=== PATIENT | female | born 1940 | race Caucasian/White ===

== ENCOUNTER → 2020-10-26 12:49 | Outpatient (CLI) | payer OTHER, SELFPAY ==
[2020-10-26] MEDS: COVID-19 VACC, Ad26(JANSSEN)/PF 0.5 ML IM (13:01)
== END ==
PROVIDERS: Visit Provider Internal Medicine
DX: Z23 Encounter for immunization (principal)
CPT/HCPCS: 0031A; 91303

== ENCOUNTER 2025-01-06 14:05 | Observation (INO) | payer MEDICARE, SELFPAY ==
[2025-01-06] VITALS (22 sets, daily range): BP systolic 95–147; BP diastolic 65–85; PULSE 83–93; RESP 13–26; TEMP 36.6–36.8; O2SAT 94–100; BMI 23.1
--- NOTE | 2025-01-06 14:27 | DI.RAD.S_ITS ---
PROCEDURE: XR CHEST 1V INDICATIONS: Chest Pain TECHNIQUE: One view of the chest was acquired. COMPARISON: None. FINDINGS: Surgical changes and devices: None. Lungs and pleura: Patient is rotated towards the left. Bilateral interstitial opacities. No pleural effusions or pneumothorax. Mediastinum: Mediastinal contours are distorted by patient rotation. Bones and chest wall: No suspicious bony lesions. Overlying soft tissues appear unremarkable. IMPRESSION: Bilateral pulmonary opacities may be secondary to pneumonia or edema. Approved by: Kash Alvarado M.D. on 01/06/2025 at 13:50
--- NOTE | 2025-01-06 14:31 | EKG_ITS ---
[address] [address] Test Date: 2025-01-06 Pat Name: Madeleine Saldana Department: [facility] Room: Gender: Female Aqu[employer] Performer: : 1940 Requested By: Order Number: [id number] Reading MD: Sonny Carpenter Measurements Intervals [place] Rate: 90 P: 63 KS: 150 QRS: -4 QRSD: 96 T: 106 QT: 384 QTc: 469 Interpretive Statements Sinus rhythm with occasional premature ventricular complexes Left ventricular hypertrophy with repolarization abnormality ( R in aVL , Kye product ) Electronically Signed On 01-06-2025 15:32:25 PDT by Sonny Carpenter
--- NOTE | 2025-01-06 14:32 | PC.NURSE ---
Pt skin tone is yellow all throughout her body and the sclera of her eyes. Daughter reports this has worsened in the past few weeks. She reports increasing weakness over the past few days, needing help getting up to the bathroom, SOB with ambulation and dizziness upon standing that subsides. Decreased appetite and itchiness on her body, particularly both of her arms. No rash noted. She is still able to tolerate fluids by mouth. GCS 15. No known medical history other than patient reports an allergy to latex.
[2025-01-06 14:40] LABS: Alanine Aminotransferase 93 IU/L (<35); Albumin 3.6 g/dL (3.5-5.0); Albumin Globulin Ratio 0.8 (1.0-2.8); Aspartate Aminotransferase 131 IU/L (14-36); BUN Creatinine Ratio 32.1 (6-22); Blood Urea Nitrogen 25 mg/dL (7-17); Calcium 9.8 mg/dL (8.4-10.2); Carbon Dioxide 22 mmol/L (22-32); Chloride 100 mmol/L (98-107); Creatine Kinase 38 U/L (30-135); Estimated Glomerular Filt Rate > 60 mL/min (>60); Globulin 4.6 g/dL (1.7-4.1); Glucose 102 mg/dL (70-99); Lipase 290 U/L (23-300); Magnesium 2.1 mg/dL (1.6-2.3); Potassium 3.3 mmol/L (3.4-5.1); Sodium 133 mmol/L (137-145)
[2025-01-06 14:41] LABS: INR 1.6 (0.9-1.3); PTT Partial Thromboplastin Tim 33 SECONDS (25.1-36.5); Prothrombin Time 17.6 SECONDS (9.4-12.5)
[2025-01-06 14:47] LABS: Hematocrit 33.5 % (36-46); Hemoglobin 11.2 g/dL (12.0-16.0); Mean Corpuscular HGB Conc 33.5 % (30-36); Mean Corpuscular Hemoglobin 28.7 PG (26-34); Mean Corpuscular Volume 85.6 fL (80-100); Platelet Count 202 X10^3/uL (150-400); Red Blood Cell Count 3.91 X10^6/uL (4.0-5.2); Red Cell Distribution Width 31.6 % (11.6-14.8); White Blood Cell Count 11.3 X10^3/uL (4.5-11.0)
[2025-01-06 14:51] LABS: NT-proBNP (BNP-Adult 18+) 340 pg/mL (<450); Troponin I 0.044 ng/mL (0.01-0.034)
[2025-01-06 15:09] LABS: Alkaline Phosphatase 822 U/L (38-126)
[2025-01-06 15:10] LABS: Total Protein 8.2 g/dL (6.3-8.2)
[2025-01-06 15:13] LABS: Add Manual Diff / Slide Review YES
[2025-01-06 15:31] LABS: Neutrophils Absolute Manual 9379 /uL (3000-5900); Total Cells Counted 100
[2025-01-06 15:32] LABS: Microcytosis 1+; Target Cells 2+
[2025-01-06 15:33] LABS: Anisocytosis 2+
--- NOTE | 2025-01-06 15:50 | PC.NURSE ---
Provider Luis speaks with patient. At this time, per provider, will hold doxycycline until results of CT.
--- NOTE | 2025-01-06 15:53 | ED.GENADULT ---
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 No injury or trauma. No history of exposure to known hepatitis. No [id number] prescription medications. Denies fevers or chills. Has itching of the skin after yellow in color that is becoming more intense last few days. Related Data Previous Rx's Medication Instructions Recorded diphenhydramine HCl 25 mg capsule 50 mg (2 x 25 mg) PO QID #40 caps 01/06/25 (Benadryl) ondansetron 4 mg disintegrating 4 mg PO Q6H PRN nausea and 01/06/25 tablet vomiting #20 tabs oxycodone 5 mg tablet 5 mg PO Q6H PRN pain #20 tabs 01/06/25 Allergies Allergy/AdvReac Type Severity Reaction Status Date / Time amoxicillin Allergy Intermediate Rash Verified 01/06/25 15:49 latex AdvReac Intermediate ITCHING Verified 01/06/25 14:47 Patient History <Meliton Smith MD - Last Filed: 01/07/25 10:07> Social History household members: none Smoking Status: Never smoker alcohol intake: never Exam <Meliton Smith MD - Last Filed: 01/07/25 10:07> Narrative Exam Narrative: GENERAL: Well-developed patient, in mild distress. HEAD: Atraumatic. Normocephalic. EYES: Pupils equal round and reactive. Extraocular motions intact. Dark scleral icterus. No injection or drainage. ENT: Nose without bleeding, purulent drainage. Throat without erythema, tonsillar hypertrophy or exudate. Airway patent. NECK: Trachea midline. Non tender CARDIOVASCULAR: Regular rate and rhythm without murmurs, gallops, or rubs. RESPIRATORY: Clear to auscultation. Breath sounds equal bilaterally. No wheezes, rales, or rhonchi. GASTROINTESTINAL: Abdomen soft, non-tender, nondistended. EXTREMITIES: No edema or joint tenderness. BACK: Nontender without deformity or crepitance. No flank tenderness. NEURO: AOx3. Motor functions grossly nonfocal. SKIN: Bronze yellow color diffuse, central as well as peripheral. No rash or erythema of visible areas Initial Vital Signs Initial Vital Signs: Vital Signs Pulse Rate 93 H 01/06/25 14:10 Respiratory Rate 16 01/06/25 14:10 Blood Pressure 132/78 01/06/25 14:10 Pulse Oximetry 98 01/06/25 14:10 <Fuad Nielsen DO - Last Filed: 01/07/25 00:34> Initial Vital Signs Initial Vital Signs: Vital Signs Pulse Rate 93 H 01/06/25 14:10 Respiratory Rate 16 01/06/25 14:10 Blood Pressure 132/78 01/06/25 14:10 Pulse Oximetry 98 01/06/25 14:10 Course <Meliton Smith MD - Last Filed: 01/07/25 10:07> Orders Ordered: Diphenhydramine HCl (Diphenhydramine 25 Mg Tablet) 50 mg PO Q6HR PRN PRN Reason: Itching Last Admin: 01/07/25 09:49 Dose: 50 mg Documented By: BARBARA Hydromorphone HCl (Hydromorphone 2 Mg Tablet) 4 mg PO Q4HR PRN PRN Reason: Pain, Severe (7-10) Last Admin: 01/06/25 23:40 Dose: 4 mg Documented By: Hydromorphone HCl (Hydromorphone 0.5 Mg Inj) 0.5 mg IV Q2H PRN PRN Reason: Pain, Severe (7-10) Ibuprofen (Ibuprofen 600 Mg Tablet) 600 mg PO Q6H PRN PRN Reason: Fever/Mild Pain (1-3) Naloxone HCl (Naloxone 0.4 Mg/Ml Vial) 0.2 mg IV Q2MIN PRN PRN Reason: Opiate Reversal Ondansetron HCl (Ondansetron 4 Mg Odt) 4 mg PO Q4HR PRN PRN Reason: nausea Oxycodone HCl (Oxycodone Ir 5 Mg Tablet) 5 mg PO Q3H PRN PRN Reason: Pain, Moderate (4-6) Sodium Chloride (Sodium Chloride 0.9% Flush) 10 ml IV PRN PRN PRN Reason: Flush Last Admin: 01/07/25 00:56 Dose: 10 ml Documented By: Sodium Chloride (Sodium Chloride 0.9% Flush) 10 ml IV BID RANDALL Last Admin: 01/07/25 09:50 Dose: 10 ml Documented By: FRANCISCOW Discontinued Medications Diphenhydramine HCl (Diphenhydramine 50 Mg/Ml Vial) 25 mg IV NOW ONE Stop: 01/06/25 15:55 Last Admin: 01/06/25 16:01 Dose: 25 mg Documented By: ISAIAS Diphenhydramine HCl (Diphenhydramine 25 Mg Tablet) 50 mg PO NOW ONE Stop: 01/06/25 18:38 Last Admin: 01/06/25 19:05 Dose: 50 mg Documented By: ISAIAS Diphenhydramine HCl (Diphenhydramine 50 Mg/Ml Vial) 25 mg IV NOW ONE Stop: 01/07/25 00:12 Last Admin: 01/07/25 00:56 Dose: 25 mg Documented By: Doxycycline Hyclate (Doxycycline Hyclate 100 Mg Tablet) 100 mg PO NOW ONE Stop: 01/06/25 15:35 Last Admin: 01/06/25 17:58 Dose: Not Given Documented By: ISAIAS Morphine Sulfate (Morphine 4 Mg/Ml Inj) 4 mg IV NOW ONE Stop: 01/06/25 15:55 Last Admin: 01/06/25 16:01 Dose: 4 mg Documented By: ISAIAS Ondansetron HCl (Ondansetron 4 Mg/2 Ml Inj) 4 mg IV NOW ONE Stop: 01/06/25 15:55 Last Admin: 01/06/25 16:00 Dose: 4 mg Documented By: ISAIAS Ondansetron HCl (Ondansetron 4 Mg Odt Prepack) 1 bottle MISC DIRECTED ONE Stop: 01/06/25 18:20 Last Admin: 01/06/25 19:05 Dose: 1 bottle Documented By: ISAIAS Oxycodone HCl (Oxycodone Ir 5 Mg Tablet) 5 mg PO NOW ONE Stop: 01/06/25 18:37 Last Admin: 01/06/25 19:04 Dose: 5 mg Documented By: ISAIAS Potassium Chloride (Potassium Chloride 20 Meq/15 Ml Udc) 20 meq PO NOW ONE Stop: 01/06/25 15:33 Last Admin: 01/06/25 16:00 Dose: 20 meq Documented By: ISAIAS Tramadol HCl (Tramadol 50 Mg Prepack) 1 bottle MISC DIRECTED ONE Stop: 01/06/25 18:20 Last Admin: 01/06/25 19:05 Dose: 1 bottle Documented By: ISAIAS Vital Signs Vital signs: Vital Signs - 8 hr 01/06/25 17:30 01/06/25 17:30 01/06/25 18:00 Pulse Rate 91 H 89 Respiratory Rate 19 24 Blood Pressure 120/74 Pulse Oximetry 95 94 Oxygen Delivery Method Room Air 01/06/25 18:00 01/06/25 18:30 01/06/25 18:30 Pulse Rate 90 Respiratory Rate Blood Pressure 100/66 103/70 Pulse Oximetry 96 Oxygen Delivery Method 01/06/25 19:00 01/06/25 19:00 01/06/25 19:03 Pulse Rate 88 Respiratory Rate Blood Pressure 95/67 97/68 Pulse Oximetry 96 Oxygen Delivery Method 01/06/25 19:03 01/06/25 19:18 01/06/25 19:18 Pulse Rate 89 93 H Respiratory Rate 20 Blood Pressure 107/75 Pulse Oximetry 95 Oxygen Delivery Method Room Air 01/06/25 19:30 01/06/25 19:30 01/06/25 20:00 Pulse Rate 90 85 Respiratory Rate 25 H 24 Blood Pressure 107/73 Pulse Oximetry 97 98 Oxygen Delivery Method 01/06/25 20:01 01/06/25 20:01 01/06/25 20:30 Pulse Rate 85 87 Respiratory Rate 26 H 24 Blood Pressure 146/80 H Pulse Oximetry 97 96 Oxygen Delivery Method 01/06/25 20:30 01/06/25 21:00 01/06/25 21:00 Pulse Rate 87 Respiratory Rate 21 Blood Pressure 110/69 116/74 Pulse Oximetry 97 Oxygen Delivery Method <Fuad Nielsen, DO - Last Filed: 01/07/25 00:34> Orders Ordered: Diphenhydramine HCl (Diphenhydramine 25 Mg Tablet) 50 mg PO Q6HR PRN PRN Reason: Itching Last Admin: 01/07/25 09:49 Dose: 50 mg Documented By: FRANCISCOW Hydromorphone HCl (Hydromorphone 2 Mg Tablet) 4 mg PO Q4HR PRN PRN Reason: Pain, Severe (7-10) Last Admin: 01/06/25 23:40 Dose: 4 mg Documented By: Hydromorphone HCl (Hydromorphone 0.5 Mg Inj) 0.5 mg IV Q2H PRN PRN Reason: Pain, Severe (7-10) Ibuprofen (Ibuprofen 600 Mg Tablet) 600 mg PO Q6H PRN PRN Reason: Fever/Mild Pain (1-3) Naloxone HCl (Naloxone 0.4 Mg/Ml Vial) 0.2 mg IV Q2MIN PRN PRN Reason: Opiate Reversal Ondansetron HCl (Ondansetron 4 Mg Odt) 4 mg PO Q4HR PRN PRN Reason: nausea Oxycodone HCl (Oxycodone Ir 5 Mg Tablet) 5 mg PO Q3H PRN PRN Reason: Pain, Moderate (4-6) Sodium Chloride (Sodium Chloride 0.9% Flush) 10 ml IV PRN PRN PRN Reason: Flush Last Admin: 01/07/25 00:56 Dose: 10 ml Documented By: Sodium Chloride (Sodium Chloride 0.9% Flush) 10 ml IV BID RANDALL Last Admin: 01/07/25 09:50 Dose: 10 ml Documented By: BARBARA Discontinued Medications Diphenhydramine HCl (Diphenhydramine 50 Mg/Ml Vial) 25 mg IV NOW ONE Stop: 01/06/25 15:55 Last Admin: 01/06/25 16:01 Dose: 25 mg Documented By: ISAIAS Diphenhydramine HCl (Diphenhydramine 25 Mg Tablet) 50 mg PO NOW ONE Stop: 01/06/25 18:38 Last Admin: 01/06/25 19:05 Dose: 50 mg Documented By: ISAIAS Diphenhydramine HCl (Diphenhydramine 50 Mg/Ml Vial) 25 mg IV NOW ONE Stop: 01/07/25 00:12 Last Admin: 01/07/25 00:56 Dose: 25 mg Documented By: Doxycycline Hyclate (Doxycycline Hyclate 100 Mg Tablet) 100 mg PO NOW ONE Stop: 01/06/25 15:35 Last Admin: 01/06/25 17:58 Dose: Not Given Documented By: ISAIAS Morphine Sulfate (Morphine 4 Mg/Ml Inj) 4 mg IV NOW ONE Stop: 01/06/25 15:55 Last Admin: 01/06/25 16:01 Dose: 4 mg Documented By: ISAIAS Ondansetron HCl (Ondansetron 4 Mg/2 Ml Inj) 4 mg IV NOW ONE Stop: 01/06/25 15:55 Last Admin: 01/06/25 16:00 Dose: 4 mg Documented By: ISAIAS Ondansetron HCl (Ondansetron 4 Mg Odt Prepack) 1 bottle MISC DIRECTED ONE Stop: 01/06/25 18:20 Last Admin: 01/06/25 19:05 Dose: 1 bottle Documented By: ISAIAS Oxycodone HCl (Oxycodone Ir 5 Mg Tablet) 5 mg PO NOW ONE Stop: 01/06/25 18:37 Last Admin: 01/06/25 19:04 Dose: 5 mg Documented By: ISAIAS Potassium Chloride (Potassium Chloride 20 Meq/15 Ml Udc) 20 meq PO NOW ONE Stop: 01/06/25 15:33 Last Admin: 01/06/25 16:00 Dose: 20 meq Documented By: ISAIAS Tramadol HCl (Tramadol 50 Mg Prepack) 1 bottle MISC DIRECTED ONE Stop: 01/06/25 18:20 Last Admin: 01/06/25 19:05 Dose: 1 bottle Documented By: ISAIAS Vital Signs Vital signs: Vital Signs - 8 hr 01/06/25 17:30 01/06/25 17:30 01/06/25 18:00 Pulse Rate 91 H 89 Respiratory Rate 19 24 Blood Pressure 120/74 Pulse Oximetry 95 94 Oxygen Delivery Method Room Air 01/06/25 18:00 01/06/25 18:30 01/06/25 18:30 Pulse Rate 90 Respiratory Rate Blood Pressure 100/66 103/70 Pulse Oximetry 96 Oxygen Delivery Method 01/06/25 19:00 01/06/25 19:00 01/06/25 19:03 Pulse Rate 88 Respiratory Rate Blood Pressure 95/67 97/68 Pulse Oximetry 96 Oxygen Delivery Method 01/06/25 19:03 01/06/25 19:18 01/06/25 19:18 Pulse Rate 89 93 H Respiratory Rate 20 Blood Pressure 107/75 Pulse Oximetry 95 Oxygen Delivery Method Room Air 01/06/25 19:30 01/06/25 19:30 01/06/25 20:00 Pulse Rate 90 85 Respiratory Rate 25 H 24 Blood Pressure 107/73 Pulse Oximetry 97 98 Oxygen Delivery Method 01/06/25 20:01 01/06/25 20:01 01/06/25 20:30 Pulse Rate 85 87 Respiratory Rate 26 H 24 Blood Pressure 146/80 H Pulse Oximetry 97 96 Oxygen Delivery Method 01/06/25 20:30 01/06/25 21:00 01/06/25 21:00 Pulse Rate 87 Respiratory Rate 21 Blood Pressure 110/69 116/74 Pulse Oximetry 97 Oxygen Delivery Method Medical Decision Making <Meliton Smith MD - Last Filed: 01/07/25 10:07> Lab Data Lab results reviewed: Yes I reviewed the patient's lab results. Lab results narrative: White blood cell count 41971, hemoglobin 11.2, platelets 202,000. Glucose 102. Renal function unremarkable. Potassium 3.3 low. Sodium 133 low. Total bilirubin 37, direct bilirubin 34. Mild transaminitis. Alkaline phosphatase 822. Lipase 290. 01/06/25 14:19 01/06/25 14:19 Labs: Lab Results 01/06/25 Range/Units 14:19 WBC 11.3 H (4.5-11.0) X10^3/uL RBC 3.91 L (4.0-5.2) X10^6/uL Hgb 11.2 L (12.0-16.0) g/dL Hct 33.5 L (36-46) % MCV 85.6 (80-100) fL MCH 28.7 (26-34) PG MCHC 33.5 (30-36) % RDW 31.6 H (11.6-14.8) % Plt Count 202 (150-400) X10^3/uL Neut % (Auto) Not Reportable Lymph % (Auto) Not Reportable [place] % (Auto) Not Reportable Eos % (Auto) Not Reportable Baso % (Auto) Not Reportable Lymph # (Auto) Not Reportable [place] # (Auto) Not Reportable Baso # (Auto) Not Reportable Total Counted 100 Seg Neutrophils % 83.0 H (38-70) % Lymphocytes % (Manual) 9.0 L (25-45) % Monocytes % (Manual) 7.0 (2-11) % Eosinophils % (Manual) 1.0 L (2-4) % Neutrophils # (Manual) 9379 H (8205-5415) /uL RBC Morphology See below Anisocytosis 2+ H Microcytosis 1+ H Target Cells 2+ H PT 17.6 H (9.4-12.5) SECONDS INR 1.6 H (0.9-1.3) APTT 33 (25.1-36.5) SECONDS Sodium 133 L (137-145) mmol/L Potassium 3.3 L (3.4-5.1) mmol/L Chloride 100 (98-107) mmol/L Carbon Dioxide 22 (22-32) mmol/L BUN 25 H (7-17) mg/dL Creatinine 0.78 (0.52-1.04) mg/dL Estimated GFR > 60 (>60) mL/min BUN/Creatinine Ratio 32.1 H (6-22) Glucose 102 H (70-99) mg/dL Calcium 9.8 (8.4-10.2) mg/dL Magnesium 2.1 (1.6-2.3) mg/dL Total Bilirubin 37.0 H (0.2-1.3) mg/dL Direct Bilirubin 34.2 H (0.0-0.4) mg/dL AST 131 H (14-36) IU/L ALT 93 H (<35) IU/L Alkaline Phosphatase 822 H (38-126) U/L Total Creatine Kinase 38 (30-135) U/L Troponin I 0.044 H (0.01-0.034) ng/mL NT-Pro-B Natriuret Pep 340 (<450) pg/mL Total Protein 8.2 (6.3-8.2) g/dL Albumin 3.6 (3.5-5.0) g/dL Globulin 4.6 H (1.7-4.1) g/dL Albumin/Globulin Ratio 0.8 L (1.0-2.8) Lipase 290 (23-300) U/L Imaging Data CT chest abdomen pelvis: Radiologist's Impression: [address] [address] [address] Scan Report Signed Patient: Madeleine Saldana MR#: [id number] : 1940 Acct:[id number] Age/Sex: 84 / F Date of Service: 01/06/25 Loc: ED Accession Number: [id number] Procedure: CT chest abd pel w con Ordering Provider: Meliton Smith MD PROCEDURE: CT CHEST ABD PEL W CON INDICATIONS: painless jaunidce, and ?infilt on CXR TECHNIQUE: After the administration of intravenous contrast, 5 mm thick sections acquired from the lung apices to the symphysis. 5 mm coronal and sagittal reformats were performed, with additional 7 mm MIP reformats through the lungs. For radiation dose reduction, the following was used: automated exposure control, adjustment of mA and/or kV according to patient size. COMPARISON: Merged With [facility], CR, XR CHEST 1V, 01/06/2025, 14:25. FINDINGS: Image quality: Excellent. CHEST: Lower Neck: No enlarged lymph nodes. Thyroid: No thyroid nodules which require sonographic follow up, per consensus guidelines. Axillae: No enlarged lymph nodes. Chest Wall: Unremarkable. Lungs and Pleura: Numerous bilateral pulmonary nodules and peripheral opacities. The largest is located in the anterior left upper lobe measuring approximately 3.4 x 2.9 cm (5/136) No pneumothorax or pleural effusions. Heart: Heart size is normal. No pericardial effusion. Thoracic Vessels: The aorta and pulmonary arteries demonstrate normal size. Mediastinum and Bella: A right hilar lymph node measures 1.1 cm in short axis diameter (2/40). Esophagus: No wall thickening. No hiatal hernia. ABDOMEN: Liver: Multiple hypoattenuating liver masses, the largest in the left hepatic lobe measuring approximately the 4.3 x 3.5 cm (2/76). Gallbladder: Gallbladder is contracted and not well evaluated. Biliary ducts: Diffuse intrahepatic biliary duct dilatation. Extrahepatic bile ducts are poorly visualized. Pancreas: Ill-defined mass in the body of the pancreas estimated at 3.8 x 3.6 cm (2/96), by 4.8 cm in craniocaudal dimension (3/49). There is dilation of the main pancreatic duct within the tail with associated pancreatic atrophy. The mass encases and narrows the splenic artery and abuts the superior mesenteric artery. Of note, the common hepatic artery arises from the superior mesenteric artery. The mass also abuts the superior mesenteric vein and portal vein near the portal splenic confluence. There is encasement and narrowing of the splenic vein. Spleen: Size is within normal limits. Adrenal Glands: Left adrenal nodule measures 2.9 x 1.9 cm (2/96) no right adrenal nodule. Kidneys and Ureters: No hydronephrosis. No solid mass. No complex renal cystic lesion which requires follow up. Stomach and Bowel: Large hiatal hernia. Normal colonic caliber, without significant wall thickening. Peritoneum: No abnormal intraperitoneal fluid. No free air. Ventral Wall: No significant ventral hernia. Abdominal Nodes: A periportal lymph node measures 7 cm in short axis diameter. A few additional prominent upper abdominal lymph nodes are present. Left retroperitoneal lymph node measures 1.5 cm in short axis at the level of the left renal vein. Vessels: 8 or is normal in size. Variant anatomy of the inferior vena cava , with prominent left-sided venous structure below the level of the renal veins. PELVIS: Pelvic Organs: Prominent pelvic floor descent with prolapse of the uterus at the margins of the field of view of this exam. Bladder: Asymmetric irregular left bladder wall thickening. A calculus in the bladder measures 1.6 cm in maximum dimension. Pelvic Nodes: No enlarged lymph nodes. Miscellaneous: No inguinal hernias are seen. Bones: Multifocal degenerative changes. Moderate to severe T6 vertebral body compression fracture. No definite additional osseous lesions identified. IMPRESSION: 1. Ill-defined hypoattenuating mass in the pancreatic body is highly suspicious for pancreas adenocarcinoma. 2. Multiple hypoattenuating liver masses are consistent with hepatic metastatic disease. Intrahepatic biliary duct dilatation to the level of the hepatic hilum. 3. Multiple upper abdominal and retroperitoneal lymph nodes are suspicious for berto metal metastases. 4. Left adrenal 2.9 cm nodule is nonspecific, but metastatic disease is not excluded. 5. Numerous pulmonary nodules and peripheral opacities, suspicious for pulmonary metastatic disease. Superimposed primary lung malignancy or infectious or inflammatory process is not excluded given varied appearance of lesions. 6. Irregular left-sided bladder wall thickening is moderately suspicious for urothelial malignancy. Correlation with cystoscopy is suggested. 7. Moderate to severe T6 vertebral body compression fracture. 8. Prominent pelvic floor descent with anderson prolapse of the uterus. Approved by: Kash Alvarado M.D. 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 Afebrile, sirs screen negative. Screening labs remarkable for total bilirubin 37, lipase not elevated. Abdominal exam without distention or ascites obvious. No tenderness. Renal function adequate. Screening chest x-ray suspicious for possible infiltrate, no respiratory symptoms. We discussed imaging, agreeable. They would like to include CT chest along with the abdomen and pelvis, which might be helpful for staging as well, if neoplastic biliary obstructive lesion identified. DDx painless jaundice would include biliary ductal tumor, pancreatic head tumor, other extrinsic tumor compressing the common bile duct, distal stone, other. Total bilirubin 37 with direct bilirubin 34, obstructive pattern. Normal lipase. Renal function adequate. CT chest abdomen and pelvis. CT chest abdomen and pelvis. Shows pancreatic body mass suspicious for pancreatic adenocarcinoma. Multiple hypoattenuating liver masses consistent with a hepatic metastatic disease. Intrahepatic biliary duct dilation to the level of the hepatic hilum. Multiple upper abdominal and retroperitoneal lymph nodes suspicious for berto metastases. Left adrenal 2.9 cm nodule nonspecific, metastatic versus other. Numerous pulmonary nodules suspicious for pulmonary metastatic disease. Superimposed primary lung malignancy or infectious or inflammatory process not excluded given varied appearance of lesions. Irregular left-sided bladder wall thickening moderately suspicious for malignancy. Moderate to severe T6 vertebral body compression fracture. Prominent pelvic floor descent, anderson poor labs of the uterus. IV Benadryl for itching likely due to her jaundice liver failure. No urticaria. 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 We discussed various options that might include going home on symptomatic treatment with hospice, versus tele conference seeing with GI somewhere to see if palliative stenting would be possible. They would like to talk amongst themselves. We will consult with social media intern if available at this hour to see if she can participate with conversation. See social media intern consult. They elect home discharge with pain/nausea/itch medications, FU with Hospice tomorrow as outpatient. Patient/family elect to go home with Home [facility]. [facility] tramadol (without acetaminophen). [facility] ODT ondansetron. Oral dose oxycodone 5mg. Prescriptions sent for further Oxycodone, Ondansetron. OTC Benadryl for itching. DC home with family. FU tomorrow with Home [facility]. All lab work vital signs nurse triage note medication list previous ER visits all reviewed. Patient was about to be discharged was was unstable unsteady and still in significant pain was not safe for discharge. Case discussed with Dr. Shasta waters on-call who has graciously accept patient for inpatient admission <Fuad Nielsen, DO - Last Filed: 01/07/25 00:34> Lab Data Labs: Lab Results 01/06/25 Range/Units 14:19 WBC 11.3 H (4.5-11.0) X10^3/uL RBC 3.91 L (4.0-5.2) X10^6/uL Hgb 11.2 L (12.0-16.0) g/dL Hct 33.5 L (36-46) % MCV 85.6 (80-100) fL MCH 28.7 (26-34) PG MCHC 33.5 (30-36) % RDW 31.6 H (11.6-14.8) % Plt Count 202 (150-400) X10^3/uL Neut % (Auto) Not Reportable Lymph % (Auto) Not Reportable [place] % (Auto) Not Reportable Eos % (Auto) Not Reportable Baso % (Auto) Not Reportable Lymph # (Auto) Not Reportable [place] # (Auto) Not Reportable Baso # (Auto) Not Reportable Total Counted 100 Seg Neutrophils % 83.0 H (38-70) % Lymphocytes % (Manual) 9.0 L (25-45) % Monocytes % (Manual) 7.0 (2-11) % Eosinophils % (Manual) 1.0 L (2-4) % Neutrophils # (Manual) 9379 H (9500-5868) /uL RBC Morphology See below Anisocytosis 2+ H Microcytosis 1+ H Target Cells 2+ H PT 17.6 H (9.4-12.5) SECONDS INR 1.6 H (0.9-1.3) APTT 33 (25.1-36.5) SECONDS Sodium 133 L (137-145) mmol/L Potassium 3.3 L (3.4-5.1) mmol/L Chloride 100 (98-107) mmol/L Carbon Dioxide 22 (22-32) mmol/L BUN 25 H (7-17) mg/dL Creatinine 0.78 (0.52-1.04) mg/dL Estimated GFR > 60 (>60) mL/min BUN/Creatinine Ratio 32.1 H (6-22) Glucose 102 H (70-99) mg/dL Calcium 9.8 (8.4-10.2) mg/dL Magnesium 2.1 (1.6-2.3) mg/dL Total Bilirubin 37.0 H (0.2-1.3) mg/dL Direct Bilirubin 34.2 H (0.0-0.4) mg/dL AST 131 H (14-36) IU/L ALT 93 H (<35) IU/L Alkaline Phosphatase 822 H (38-126) U/L Total Creatine Kinase 38 (30-135) U/L Troponin I 0.044 H (0.01-0.034) ng/mL NT-Pro-B Natriuret Pep 340 (<450) pg/mL Total Protein 8.2 (6.3-8.2) g/dL Albumin 3.6 (3.5-5.0) g/dL Globulin 4.6 H (1.7-4.1) g/dL Albumin/Globulin Ratio 0.8 L (1.0-2.8) Lipase 290 (23-300) U/L ECG Data Interpretation: SR HR 90 NE 150 QRS [address]-t wave change No previous EKG MDM Narrative Medical decision making narrative: 84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 Afebrile, sirs screen negative. Screening labs remarkable for total bilirubin 37, lipase not elevated. Abdominal exam without distention or ascites obvious. No tenderness. Renal function adequate. Screening chest x-ray suspicious for possible infiltrate, no respiratory symptoms. We discussed imaging, agreeable. They would like to include CT chest along with the abdomen and pelvis, which might be helpful for staging as well, if neoplastic biliary obstructive lesion identified. DDx painless jaundice would include biliary ductal tumor, pancreatic head tumor, other extrinsic tumor compressing the common bile duct, distal stone, other. Total bilirubin 37 with direct bilirubin 34, obstructive pattern. Normal lipase. Renal function adequate. CT chest abdomen and pelvis. CT chest abdomen and pelvis. Shows pancreatic body mass suspicious for pancreatic adenocarcinoma. Multiple hypoattenuating liver masses consistent with a hepatic metastatic disease. Intrahepatic biliary duct dilation to the level of the hepatic hilum. Multiple upper abdominal and retroperitoneal lymph nodes suspicious for berto metastases. Left adrenal 2.9 cm nodule nonspecific, metastatic versus other. Numerous pulmonary nodules suspicious for pulmonary metastatic disease. Superimposed primary lung malignancy or infectious or inflammatory process not excluded given varied appearance of lesions. Irregular left-sided bladder wall thickening moderately suspicious for malignancy. Moderate to severe T6 vertebral body compression fracture. Prominent pelvic floor descent, anderson poor labs of the uterus. 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 We discussed various options that might include going home on symptomatic treatment with hospice, versus tele conference seeing with GI somewhere to see if palliative stenting would be possible. They would like to talk amongst themselves. We will consult with social media intern if available at this hour to see if she can participate with conversation. All lab work vital signs nurse triage note medication list previous ER visits all reviewed. Patient was about to be discharged was was unstable unsteady and still in significant pain was not safe for discharge. Case discussed with Dr. Shasta waters on-call who has graciously accept patient for inpatient admission Discharge Plan Departure Patient Disposition: Admitted As Inpatient Clinical Impression: Obstructive jaundice due to cancer, Lesion of pancreas, Lung nodules, Liver masses, Compression fracture Admit Date/Time: 01/06/25 21:09 Admit Provider: Elliot Maynard
[2025-01-06] MEDS: POTASSIUM CHLORIDE 20 MEQ/15 ML UDC PO (16:00)
[2025-01-06] MEDS: ONDANSETRON 4 MG/2 ML INJ IV (16:00)
[2025-01-06] MEDS: diphenhydrAMINE 50 MG/ML VIAL 25 MG IV (16:01)
[2025-01-06] MEDS: MORPHINE 4 MG/ML INJ IV (16:01)
--- NOTE | 2025-01-06 16:03 | DI.CT.S_ITS ---
PROCEDURE: CT CHEST ABD PEL W CON INDICATIONS: painless jaunidce, and ?infilt on CXR TECHNIQUE: After the administration of intravenous contrast, 5 mm thick sections acquired from the lung apices to the symphysis. 5 mm coronal and sagittal reformats were performed, with additional 7 mm MIP reformats through the lungs. For radiation dose reduction, the following was used: automated exposure control, adjustment of mA and/or kV according to patient size. COMPARISON: [facility], CR, XR CHEST 1V, 01/06/2025, 14:25. FINDINGS: Image quality: Excellent. CHEST: Lower Neck: No enlarged lymph nodes. Thyroid: No thyroid nodules which require sonographic follow up, per consensus guidelines. Axillae: No enlarged lymph nodes. Chest Wall: Unremarkable. Lungs and Pleura: Numerous bilateral pulmonary nodules and peripheral opacities. The largest is located in the anterior left upper lobe measuring approximately 3.4 x 2.9 cm (5/136) No pneumothorax or pleural effusions. Heart: Heart size is normal. No pericardial effusion. Thoracic Vessels: The aorta and pulmonary arteries demonstrate normal size. Mediastinum and Bella: A right hilar lymph node measures 1.1 cm in short axis diameter (2/40). Esophagus: No wall thickening. No hiatal hernia. ABDOMEN: Liver: Multiple hypoattenuating liver masses, the largest in the left hepatic lobe measuring approximately the 4.3 x 3.5 cm (2/76). Gallbladder: Gallbladder is contracted and not well evaluated. Biliary ducts: Diffuse intrahepatic biliary duct dilatation. Extrahepatic bile ducts are poorly visualized. Pancreas: Ill-defined mass in the body of the pancreas estimated at 3.8 x 3.6 cm (2/96), by 4.8 cm in craniocaudal dimension (3/49). There is dilation of the main pancreatic duct within the tail with associated pancreatic atrophy. The mass encases and narrows the splenic artery and abuts the superior mesenteric artery. Of note, the common hepatic artery arises from the superior mesenteric artery. The mass also abuts the superior mesenteric vein and portal vein near the portal splenic confluence. There is encasement and narrowing of the splenic vein. Spleen: Size is within normal limits. Adrenal Glands: Left adrenal nodule measures 2.9 x 1.9 cm (2/96) no right adrenal nodule. Kidneys and Ureters: No hydronephrosis. No solid mass. No complex renal cystic lesion which requires follow up. Stomach and Bowel: Large hiatal hernia. Normal colonic caliber, without significant wall thickening. Peritoneum: No abnormal intraperitoneal fluid. No free air. Ventral Wall: No significant ventral hernia. Abdominal Nodes: A periportal lymph node measures 7 cm in short axis diameter. A few additional prominent upper abdominal lymph nodes are present. Left retroperitoneal lymph node measures 1.5 cm in short axis at the level of the left renal vein. Vessels: 8 or is normal in size. Variant anatomy of the inferior vena cava , with prominent left-sided venous structure below the level of the renal veins. PELVIS: Pelvic Organs: Prominent pelvic floor descent with prolapse of the uterus at the margins of the field of view of this exam. Bladder: Asymmetric irregular left bladder wall thickening. A calculus in the bladder measures 1.6 cm in maximum dimension. Pelvic Nodes: No enlarged lymph nodes. Miscellaneous: No inguinal hernias are seen. Bones: Multifocal degenerative changes. Moderate to severe T6 vertebral body compression fracture. No definite additional osseous lesions identified. IMPRESSION: 1. Ill-defined hypoattenuating mass in the pancreatic body is highly suspicious for pancreas adenocarcinoma. 2. Multiple hypoattenuating liver masses are consistent with hepatic metastatic disease. Intrahepatic biliary duct dilatation to the level of the hepatic hilum. 3. Multiple upper abdominal and retroperitoneal lymph nodes are suspicious for berto metal metastases. 4. Left adrenal 2.9 cm nodule is nonspecific, but metastatic disease is not excluded. 5. Numerous pulmonary nodules and peripheral opacities, suspicious for pulmonary metastatic disease. Superimposed primary lung malignancy or infectious or inflammatory process is not excluded given varied appearance of lesions. 6. Irregular left-sided bladder wall thickening is moderately suspicious for urothelial malignancy. Correlation with cystoscopy is suggested. 7. Moderate to severe T6 vertebral body compression fracture. 8. Prominent pelvic floor descent with anderson prolapse of the uterus. Approved by: Kash Alvarado M.D. on 01/06/2025 at 16:25
[2025-01-06 17:16] LABS: Bilirubin Direct 34.2 mg/dL (0.0-0.4)
[2025-01-06] MEDS: OXYCODONE IR 5 MG TABLET PO (19:04)
[2025-01-06] MEDS: ONDANSETRON 4 MG ODT PREPACK 1 BOTTLE MISC (19:05)
[2025-01-06] MEDS: TRAMADOL 50 MG PREPACK 1 BOTTLE MISC (19:05)
[2025-01-06] MEDS: diphenhydrAMINE 25 MG TABLET 50 MG PO (19:05)
--- NOTE | 2025-01-06 19:19 | PC.NURSE ---
This RN goes to discharge patient. Patient has concerns with getting up and out of bed and caring for herself. Patient feels very weak. Patient lives home alone. Patient family also has concerns. Provider Morales made aware of patient concerns. Verbal direction to perform an ambulation trial. This RN attempts to help patient up out of bed. Patient is able to sit up part way then lays back down. States, I just can't. Pt reports dizziness. Provider Morales made aware.
--- NOTE | 2025-01-06 19:28 | CM.DANOTE ---
ED SHIFT MGR DCP Assessment Note: Pt is a 84yo female, resident of [place], is seen in the ED for weakness. Pt lives in a house alone. Pt partner, daughter, and daughter in law at bedside. Patient does not have a PCP or previous medical care/hx due to practicing [employer] and insurance is Medicare Part A. Reviewed chart and discussed with multidisciplinary team pt's medical status and initial discharge needs. ED SHIFT MGR met w/patient at bedside; introduced self and role. Patient was found in bed, alert and oriented, cooperative with assessment. Pt confirmed living situation and good support in partner and family, all state that pt has been increasingly weak and jaundiced; now requesting hospice care. Patient and family state the past few days have been unsafe as patient is not able to ambulate independently and have had many near falls. Patient family requesting hospice and private caregiving to be established before pt discharges home with hospice. ED SHIFT MGR [facility] via fax. Provided family with [facility] contact information and notified to expect informational call soon. ED SHIFT MGR spoke with Reinier at [facility], provided pt and pt daughter information for care assessment call. Sent referral via fax ph#[phone]. ED SHIFT MGR reviewed above with pt RN, pt and family and ED Provider, who all verbalize understanding. Plan: Anticipating possible admission for pain management and care coordination for hospice at home. CM team will follow closely for coordination of discharge plans. CINDY Moore Discharge Planning/Care Management CM Discharge Assessment Start: 01/06/25 19:08 Freq: Status: Active Protocol: Document 01/06/25 19:08 (Rec: 01/06/25 19:26 [id number]) Discharge Planning Assessment Assigned Sdet EVERADRO Brannon DPOA/Assigned Designee Name Nancy Stephen, Daughter Contact Information [phone] Advance Directives? No History Provided By Patient,Family Member,Medical Record Has Patient been admitted in last 30 No days? Prior Living Arrangements House Household Members none Type of transporation used prior to Relies on Others admit Independent with ADL's No Is patient alert and oriented? Yes Caregiver for Another No Discharge Plan Hospice Referrals Initiated Other Additional Comment [facility] Review Status In Process Please Provide Date Initial DC 01/06/25 Assessment Was Performed Next Review Type Continued Stay Review
--- NOTE | 2025-01-06 21:44 | P.HP_ITS ---
History of Present Illness History of Present Illness Date Patient Seen: 01/06/25 Time Patient Seen: 23:10 Chief complaint: Weakness Narrative: 84 y/o [employer] Separ[employer], without known PMH, w/o PCP, came to ER 2-3 weeks after she started to develop jaundice, nausea, generalized weakness and mid-back pain. ED workup showing pancreatic mass with likely metastases to liver, lungs, retroperitoneum, bones - T6 , possibly bladder and adrenal gland. Patient decided to proceed with hospice. Placed in observation for symptom control and arrangement of hospice. PFSH Social History household members: none Smoking Status: Never smoker alcohol intake: never Meds Home Medications and Allergies Home Medications Medication Instructions Recorded Confirmed Type diphenhydramine HCl 25 mg capsule 50 mg (2 x 25 mg) PO QID #40 caps 01/06/25 Rx (Benadryl) ondansetron 4 mg disintegrating 4 mg PO Q6H PRN nausea and 01/06/25 Rx tablet vomiting #20 tabs oxycodone 5 mg tablet 5 mg PO Q6H PRN pain #20 tabs 01/06/25 Rx Allergies Allergy/AdvReac Type Severity Reaction Status Date / Time amoxicillin Allergy Intermediate Rash Verified 01/06/25 15:49 latex AdvReac Intermediate ITCHING Verified 01/06/25 14:47 Review of Systems Review of Systems Narrative: General - generalized weakness. Without fever or chills GI - nausea, poor appetite, without abdominal pain Skin - jaundiced, itchy CVS - w/o chest pain RS - w/o SOB Exam Vital Signs (past 8 hours): - 01/06/25 14:10 01/06/25 14:10 01/06/25 14:17 Temperature 98.2 F Pulse Rate 93 H 90 Respiratory Rate 16 20 Blood Pressure 132/78 132/78 Pulse Oximetry 98 99 Oxygen Delivery Method Room Air 01/06/25 14:24 01/06/25 14:24 01/06/25 14:30 Temperature Pulse Rate 92 H 93 H Respiratory Rate 13 19 Blood Pressure 140/82 Pulse Oximetry 100 99 Oxygen Delivery Method 01/06/25 14:30 01/06/25 15:00 01/06/25 15:00 Temperature Pulse Rate 85 Respiratory Rate Blood Pressure 130/83 137/84 Pulse Oximetry 99 Oxygen Delivery Method 01/06/25 15:30 01/06/25 15:30 01/06/25 16:00 Temperature Pulse Rate 84 83 Respiratory Rate 24 Blood Pressure 131/77 Pulse Oximetry 99 98 Oxygen Delivery Method Room Air 01/06/25 16:00 01/06/25 16:30 01/06/25 17:30 Temperature Pulse Rate 93 H 91 H Respiratory Rate 18 19 Blood Pressure 132/85 Pulse Oximetry 95 95 Oxygen Delivery Method 01/06/25 17:30 01/06/25 18:00 01/06/25 18:00 Temperature Pulse Rate 89 Respiratory Rate 24 Blood Pressure 120/74 100/66 Pulse Oximetry 94 Oxygen Delivery Method Room Air 01/06/25 18:30 01/06/25 18:30 01/06/25 19:00 Temperature Pulse Rate 90 88 Respiratory Rate Blood Pressure 103/70 Pulse Oximetry 96 96 Oxygen Delivery Method 01/06/25 19:00 01/06/25 19:03 01/06/25 19:03 Temperature Pulse Rate 89 Respiratory Rate Blood Pressure 95/67 97/68 Pulse Oximetry 95 Oxygen Delivery Method Room Air 01/06/25 19:18 01/06/25 19:18 01/06/25 19:30 Temperature Pulse Rate 93 H 90 Respiratory Rate 20 25 H Blood Pressure 107/75 Pulse Oximetry 97 Oxygen Delivery Method 01/06/25 19:30 01/06/25 20:00 01/06/25 20:01 Temperature Pulse Rate 85 85 Respiratory Rate 24 26 H Blood Pressure 107/73 Pulse Oximetry 98 97 Oxygen Delivery Method 01/06/25 20:01 01/06/25 20:30 01/06/25 20:30 Temperature Pulse Rate 87 Respiratory Rate 24 Blood Pressure 146/80 H 110/69 Pulse Oximetry 96 Oxygen Delivery Method 01/06/25 21:00 01/06/25 21:00 01/06/25 21:30 Temperature Pulse Rate 87 Respiratory Rate 21 Blood Pressure 116/74 147/75 H Pulse Oximetry 97 Oxygen Delivery Method 01/06/25 21:30 Temperature Pulse Rate 87 Respiratory Rate Blood Pressure Pulse Oximetry 95 Oxygen Delivery Method Room Air Oxygen Delivery Method Room Air Narrative Exam Narrative: General - in no distress, daughter at bedside Skin -jaundiced CVS - RRR RS - normal respiratory effort GI - w/o abdominal distension or tenderness Neuro - lucid, w/o deficits, appropriate mood Objective ECG Impression: NSR 90, LVH Imaging CT scan - abdomen: Radiologist's impression: Pancreatic body mass suspicious for pancreatic adenocarcinoma. Multiple hypoattenuating liver masses consistent with a hepatic metastatic disease. Intrahepatic biliary duct dilation to the level of the hepatic hilum. Multiple upper abdominal and retroperitoneal lymph nodes suspicious for berto metastases. Left adrenal 2.9 cm nodule nonspecific, metastatic versus other. Numerous pulmonary nodules suspicious for pulmonary metastatic disease. Superimposed primary lung malignancy or infectious or inflammatory process not excluded given varied appearance of lesions. Irregular left-sided bladder wall thickening moderately suspicious for malignancy. Moderate to severe T6 vertebral body compression fracture. Chest x-ray: Radiologist's impression: Bilateral pulmonary opacities may be secondary to pneumonia or edema. Labs 01/06/25 14:19 01/06/25 14:19 Labs: Laboratory Results - last 24 hr 01/06/25 14:19 WBC 11.3 H RBC 3.91 L Hgb 11.2 L Hct 33.5 L MCV 85.6 MCH 28.7 MCHC 33.5 RDW 31.6 H Plt Count 202 Neut % (Auto) Not Reportable Lymph % (Auto) Not Reportable [place] % (Auto) Not Reportable Eos % (Auto) Not Reportable Baso % (Auto) Not Reportable Lymph # (Auto) Not Reportable [place] # (Auto) Not Reportable Baso # (Auto) Not Reportable Total Counted 100 Seg Neutrophils % 83.0 H Lymphocytes % (Manual) 9.0 L Monocytes % (Manual) 7.0 Eosinophils % (Manual) 1.0 L Neutrophils # (Manual) 9379 H RBC Morphology See below Anisocytosis 2+ H Microcytosis 1+ H Target Cells 2+ H PT 17.6 H INR 1.6 H APTT 33 Sodium 133 L Potassium 3.3 L Chloride 100 Carbon Dioxide 22 BUN 25 H Creatinine 0.78 Estimated GFR > 60 BUN/Creatinine Ratio 32.1 H Glucose 102 H Calcium 9.8 Magnesium 2.1 Total Bilirubin 37.0 H Direct Bilirubin 34.2 H AST 131 H ALT 93 H Alkaline Phosphatase 822 H Total Creatine Kinase 38 Troponin I 0.044 H NT-Pro-B Natriuret Pep 340 Total Protein 8.2 Albumin 3.6 Globulin 4.6 H Albumin/Globulin Ratio 0.8 L Lipase 290 Assessment & Plan Assessment and plan (1) 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: Status: Acute (2) 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 Patient located at [place], [place]. Provider located in [place]. Time-Based Coding :: [TOTAL MINUTES] spent with patient and on the chart (including review of chart, obtaining history, exam, reviewing outside data, placing orders, documenting exam and treatment plan, and counseling patient) on [DATE].
[2025-01-06] MEDS: HYDROMORPHONE 2 MG TABLET 4 MG PO (23:40)
[2025-01-07] MEDS: diphenhydrAMINE 50 MG/ML VIAL 25 MG IV (00:56)
[2025-01-07] MEDS: SODIUM CHLORIDE 0.9% FLUSH 10 ML IV ×3 (00:56→21:41)
--- NOTE | 2025-01-07 03:13 | PC.NURSE ---
pt admitted tonight around 2244. Pt alert and oriented. Pt skin jaundice, including her eyes. Per daughter (alejandro) and pt the jaundice has been worsening. Pt consent to come into the hospital tonight, pt had a CT of abdomen/chest which according to the night ming md shows some malignancy. Per patient and daughter the plan is for patient to go into hospice care. pt c/o pain to back and asking not to be turn in bed, no open wounds noted during initial skin assessment.
--- NOTE | 2025-01-07 07:49 | PM.PN.1 ---
Subjective Subjective Interval history: Summary: 84 y/o [employer]ian [employer], without known PMH, w/o PCP, came to ER 2-3 weeks after she started to develop jaundice, nausea, generalized weakness and mid-back pain. ED workup showing pancreatic mass with likely metastases to liver, lungs, retroperitoneum, bones - T6 , possibly bladder and adrenal gland. Patient decided to proceed with hospice. Placed in observation for symptom control and arrangement of hospice. S: Her pain is controlled, she was extremely weak, anorexic, and has pruritus. Exam Vital Signs (past 8 hours): Oxygen Delivery Method Room Air Oxygen Flow Rate 0 Narrative Exam Narrative: NAD, alert and oriented. Fluent speech. Cachectic and very jaundiced. Icteric sclera. Lungs are clear, normal rate and effort. Heart is regular, no murmur gallop or rub. Abdomen is soft, non distended. Extremities are free of edema. Objective Imaging CT scan - abdomen: Radiologist's impression: Pancreatic body mass suspicious for pancreatic adenocarcinoma. Multiple hypoattenuating liver masses consistent with a hepatic metastatic disease. Intrahepatic biliary duct dilation to the level of the hepatic hilum. Multiple upper abdominal and retroperitoneal lymph nodes suspicious for berto metastases. Left adrenal 2.9 cm nodule nonspecific, metastatic versus other. Numerous pulmonary nodules suspicious for pulmonary metastatic disease. Superimposed primary lung malignancy or infectious or inflammatory process not excluded given varied appearance of lesions. Irregular left-sided bladder wall thickening moderately suspicious for malignancy. Moderate to severe T6 vertebral body compression fracture. Labs 01/06/25 14:19 01/06/25 14:19 Labs: Laboratory Results - last 24 hr 01/06/25 14:19 WBC 11.3 H RBC 3.91 L Hgb 11.2 L Hct 33.5 L MCV 85.6 MCH 28.7 MCHC 33.5 RDW 31.6 H Plt Count 202 Neut % (Auto) Not Reportable Lymph % (Auto) Not Reportable [place] % (Auto) Not Reportable Eos % (Auto) Not Reportable Baso % (Auto) Not Reportable Lymph # (Auto) Not Reportable [place] # (Auto) Not Reportable Baso # (Auto) Not Reportable Total Counted 100 Seg Neutrophils % 83.0 H Lymphocytes % (Manual) 9.0 L Monocytes % (Manual) 7.0 Eosinophils % (Manual) 1.0 L Neutrophils # (Manual) 9379 H RBC Morphology See below Anisocytosis 2+ H Microcytosis 1+ H Target Cells 2+ H PT 17.6 H INR 1.6 H APTT 33 Sodium 133 L Potassium 3.3 L Chloride 100 Carbon Dioxide 22 BUN 25 H Creatinine 0.78 Estimated GFR > 60 BUN/Creatinine Ratio 32.1 H Glucose 102 H Calcium 9.8 Magnesium 2.1 Total Bilirubin 37.0 H Direct Bilirubin 34.2 H AST 131 H ALT 93 H Alkaline Phosphatase 822 H Total Creatine Kinase 38 Troponin I 0.044 H NT-Pro-B Natriuret Pep 340 Total Protein 8.2 Albumin 3.6 Globulin 4.6 H Albumin/Globulin Ratio 0.8 L Lipase 290 PFSH Social History household members: none Smoking Status: Never smoker alcohol intake: never Assessment & Plan Assessment & Plan narrative: 1. Pancreatic Carcinoma with metastases to liver, lungs, peritoneum, skeleton. Active. - pain, nausea and itch control - SS for hospice 2. T6 Compression fracture, active. PLAN: -arrange for Hospice. This will likely be at home, they can open on January 08. Her neighbor, and close friend will be primary point of care and additional family is coming from [facility]. FELA: 01/08, home with hospice. DNR. Time-Based Coding :: [TOTAL MINUTES] spent with patient and on the chart (including review of chart, obtaining history, exam, reviewing outside data, placing orders, documenting exam and treatment plan, and counseling patient) on [DATE]. Quality VTE Deep Vein Thrombosis/Pulmonary Embolism Present on Admission: No
[2025-01-07 08:00] VITALS: BP 119/71; PULSE 94; RESP 18; TEMP 36.7; O2SAT 93; O2SAT 98
[2025-01-07] MEDS: diphenhydrAMINE 25 MG TABLET 50 MG PO ×2 (09:49→17:22)
--- NOTE | 2025-01-07 10:46 | CM.DPC ---
Addendum entered by EVERARDO Garcia 01/07/25 11:36: ADD: Met with [facility] Location And Measurement Technician Hanny [phone] and Dtr Nancy and updated on Hospice DME likely able to be delivered by tomorrow and will call Dtr but current opening Sat but if pt remains stable and comfortable likely d/c home in the next 1-2 days before Hospice starts unless they have an opening sooner. [facility] will follow closely and can get CG in place when pt discharges home. BF Original Note: DCP [facility] at Home Cont: Per RN, family and pt tearful and have questions regarding home vs facility with Hospice. SW met bedside with pt (very yellow with jaundice) and Dtr Nancy Stephen ([phone]) and explained role and discussed Hospice at home vs privately paying at SNF or [facility]. Dtr states she lives in [facility] but works remotely and plans to submit for FMLA if needed. After further discussion with family friends, decision of preference of pt to d/c home with family and friend support, [facility], and [facility] CGs. Pt and Dtr meeting with [facility] agency bedside today at 1030 and confirm they are working on plan for support at home at d/c and Dtr requests assist with coordinating with [facility] for home. Lilia from [facility] called back stating she will call Dtr now to confirm DME needs and DME could likely be delivered to the home by tomorrow 01/08/25 but currently their next opening is 01/11/25 but they will keep pt on the list in case something opens sooner. If pt remains stable and [facility] in place, pt could likely d/c home in the next 1-2 days while waiting for Hospice to open. EVERARDO Garcia
[2025-01-07] MEDS: OXYCODONE IR 5 MG TABLET PO (17:22)
[2025-01-07 19:00] VITALS: O2SAT 95
[2025-01-07 19:53] VITALS: BP 137/79; PULSE 87; RESP 18; TEMP 36.6; O2SAT 95
[2025-01-08] MEDS: diphenhydrAMINE 25 MG TABLET 50 MG PO ×2 (01:38→07:34)
[2025-01-08 07:00] VITALS: BP 119/70; PULSE 86; RESP 17; TEMP 36.2; O2SAT 96
[2025-01-08 07:55] VITALS: O2SAT 96
[2025-01-08] MEDS: IBUPROFEN 600 MG TABLET PO (09:46)
[2025-01-08] MEDS: SODIUM CHLORIDE 0.9% FLUSH 10 ML IV (09:47)
--- NOTE | 2025-01-08 10:57 | CM.DPC ---
DCP Cont. Reviewed EMR and team rounds for pt's status updates. Pt has been medically cleared for home d/c. BLS will transport today at 1:00pm. [facility], 01/11. POLST form in place, DNR. No further CM d/c assistance/resource needs at this time.
--- NOTE | 2025-01-08 11:03 | PM.DS.1 ---
History of Present Illness History of Present Illness Chief complaint: Weakness Narrative: From H&P: 84 y/o [employer], without known PMH, w/o PCP, came to ER 2-3 weeks after she started to develop jaundice, nausea, generalized weakness and mid-back pain. ED workup showing pancreatic mass with likely metastases to liver, lungs, retroperitoneum, bones - T6 , possibly bladder and adrenal gland. Patient decided to proceed with hospice. Placed in observation for symptom control and arrangement of hospice. Discharge Providers Provider Date of admission: 01/06/25 21:09 Discharge Date: 01/08/25 Consults: 01/06/25 18:02 Consult to [facility] [place] - Proofer Apprentice Stat Comment: Proofer Apprentice Consult needed for:: Other reason (Comment) Comment: Resources needed r/t care 01/06/25 21:43 Consult to Discharge Planning Routine Comment: needs hospice Discharge provider: Sonny Carpenter MD Summary Hospital Course Discharge Diagnosis: 1. Pancreatic Carcinoma with metastases to liver, lungs, peritoneum, skeleton. Active. 2. T6 Compression fracture, active. Hospital Course: She was placed in observation for arrangement of hospice services. She was stable for discharge on January 08. She was comfortable and refills for pain medications, cortisone cream, and Ativan were sent to the pharmacy. Hospice while open this weekend and she was a lot of social support at the time of discharge moving forward. Status at Discharge Cognitive/behavioral status at discharge: oriented Functional status at discharge: uses cane/walker Overall status at discharge: patient is not back to baseline Time Spent with Patient Time spent: Greater than 30 minutes Exam Vital Signs (past 8 hours): - 01/08/25 07:00 Temperature 97.1 F L Pulse Rate 86 Respiratory Rate 17 Blood Pressure 119/70 Pulse Oximetry 96 Oxygen Flow Rate 0 Oxygen Delivery Method Room Air Oxygen Flow Rate 0 Narrative Exam Narrative: Seen in the day of discharge. She was doing well. She was severe jaundice. Breathing is unlabored. Extremities are free of edema. Objective Labs 01/06/25 14:19 01/06/25 14:19 [facility] Social History household members: none Smoking Status: Never smoker alcohol intake: never Discharge Assessment & Plan Assessment and Plan Assessment: 1. Metastatic pancreas cancer. Plan of Treatment: Discharge home with opening of hospice. Discharge Plan Discharge Plan Patient Disposition: Hospice - Home Provider Discharge Comment: Stable for discharge to home. She was caregivers and hospice will open on Monday. Discharge orders & Medications Discharge Orders: Discharge (Order); Ordered 01/08/25 Ordered By: Sonny Carpenter Prescriptions: New diphenhydramine HCl [Benadryl] 25 mg capsule 50 mg PO QID Qty: 40 0RF ondansetron 4 mg tablet,disintegrating 4 mg PO Q6H PRN (Reason: nausea and vomiting) Qty: 20 0RF hydrocortisone 2.5 % Cream 1 applic topical BID PRN (Reason: Itching) Qty: 60 2RF ondansetron 4 mg Tablet,Disintegrating 4 mg PO Q4HR PRN (Reason: nausea) Qty: 30 0RF oxycodone 5 mg Tablet 5 mg PO Q3H PRN (Reason: Pain, Moderate (4-6)) Qty: 20 0RF lorazepam [Ativan] 0.5 mg tablet 0.5 mg PO BID PRN (Reason: anxiety) Qty: 20 0RF Medication counseling provided by Pharmacist: No Discharge Health Status Multidrug resistant organism: No MDRO Diet/Activity/Treatments Diet: Diet as Tolerated Visit Report/Discharge Packet Stand Alone Forms: Patient Portal/API, Stroke Signs & Symptoms, Patient Portal/API/Survey Discharge Data Attending Provider: Elliot Maynard Admit Date/Time: 01/06/25 21:09 Quality VTE Deep Vein Thrombosis/Pulmonary Embolism Present on Admission: No
--- NOTE | 2025-01-08 13:11 | PC.NURSE ---
D/c teaching gone over with patient and daughter at bedside. Per daughter, Hospice equipment delivered today and home health to come today after pt arrives home. Hospice to start on Monday, encouraged daughter to reach out with HH and/or hospice if she finds that conditions have progressed with patient and patient is req. more medical attention. IV removed by [employer] SY[employer] STAMPER on care team. Transport team (BLS) arrived at 1300 for patient. Facesheet and BLS documentation was handed by this nurse to BLS designee. Primary nurse Shanell is aware to give report to BLS.
--- NOTE | 2025-01-08 17:09 | PC.NURSE ---
Discharge: Pt transferred to home with family and hospice care, all equipment has arrived and the family has picked up meds. Discharge instructions were reviewed with family by Randall HEREDIA.
== END 2025-01-08 13:30 | disposition hospice, home (50) ==
LOC: ED 20:47 → AC 21:10
PROVIDERS: Emergency Medicine; Admitting Provider Internal Medicine; Emergency Provider Family Medicine; Visit Provider Internal Medicine
DX: C25.9 Malignant neoplasm of pancreas, unspecified (principal); C78.7 Secondary malignant neoplasm of liver and intrahepatic bile duct; C78.00 Secondary malignant neoplasm of unspecified lung; K83.1 Obstruction of bile duct; R53.1 Weakness; S22.058A Other fracture of T5-T6 vertebra, initial encounter for closed fracture; Z66 Do not resuscitate
CPT/HCPCS: 36415; 71045; 71260; 74177; 80053; 82248; 82550; 83690; 83735; 83880; 84484; 85007; 85025; 85610; 85730; 93005; 96374; 96375; 96376; 99284; G0378; J1200; J2270; J2405; Q9967